=== PATIENT | female | born 1980 | race Caucasian/White ===

== ENCOUNTER 2017-05-15 22:35 | Emergency (ER) | payer OTHER ==
[~2017-05-15] VITALS: Ht 160 cm; Wt 51.3 kg
[~2017-05-15 22:35] MED LIST: ATIVAN1 M1 PO; DEMEROL HYDROCH50 MG PO; DIAZEPAM5 MG PO; VALIUM5 M2 PO; [UNRECOGNIZED DRUG - OTHER]
--- NOTE | 2017-05-15 23:33 | ED ANIMAL BITE/WOUND CHECK ---
History of Present Illness General Chief Complaint: Animal/Insect Bite Stated Complaint: PT WAS ATTTACK BY UNKNOWN CAT Source: patient Exam Limitations: no limitations Vital Signs & Intake/Output Vital Signs & Intake/Output Vital Signs Date Time Temp Pulse Resp B/P B/P Pulse O2 O2 Flow FiO2 Mean Ox Delivery Rate 05/15 2256 98.5 05/15 2252 98.5 69 16 99 Room Air ED Intake and Output 05/16 0000 05/15 1200 Intake Total 120 Output Total Balance 120 Intake, Oral 120 Patient 113 lb Weight Weight Reported by Patient Measurement Method Allergies Coded Allergies: Penicillins (Severe, RASH 03/04/16) ciprofloxacin (From Cipro) (Severe, RASH 03/04/16) erythromycin base (Severe, ANAPHYLAXIS 03/04/16) sulfamethoxazole (From Bactrim) (Severe, ANAPHYLAXIS 03/04/16) trimethoprim (From Bactrim) (Severe, ANAPHYLAXIS 03/04/16) acetaminophen (From VICODIN) (VOMITING 03/04/16) hydrocodone (From VICODIN) (VOMITING 03/04/16) oxycodone (From PERCOCET) (VOMITING 03/04/16) Reconcile Medications Clindamycin HCl 300 MG CAPSULE 1 CAP PO TID cat bite Diazepam 5 MG TAB 1 TAB PO TIDPRN PRN PAIN (Reported) Doxycycline Hyclate 100 MG TABLET 1 TAB PO BID cat bite Lorazepam (Ativan) 1 MG TABLET 1-2 TAB PO TIDPRN muscle strain/spasm Medroxyprogesterone Acetate (Depo-Provera 100MG Per Ml- 5 Ml Vial) 500 MG/5 ML CHELLE CONTROL (Reported) Meperidine Hydrochloride (Demerol Hydrochloride) 50 MG TAB 1-2 TAB PO Q6P PRN PAIN Triage Note: TRIAGE: PT WAS ATTACKED BY AN UNKNOWN OUTDOOR CAT TODAY AND WENT TO WALK IN WHO REFERRED HER TO ED FOR IV ANTIBIOTICS AND RABIES SERIES. BILATERAL FOREARMS NOTED WITH MANY PUNCTURE WOUNDS. PT CLEANED THEM WITH PEROXIDE CRAB FISHERMAN. REPORTS MULTIPLE ANTIBIOTIC ALLERGIES. UNSURE ON TETANUS Triage Nurses Notes Reviewed? yes Onset: Abrupt Duration: day(s): (1), constant, continues in ED, getting worse Timing: single episode today Injury Environment: home Is Injury an Animal Bite? Yes Animal Type: cat Context of Animal Attack: unprovoked attack Appearance of Animal: unknown Animal Immunization Status: unknown Observation/Capture: not captured Severity of Attack: bitten Severity: mild, moderate Severity Numbers: 7 No Modifying Factors: none LMP (ages 10-50): unknown : No Patient currently breastfeeds: No HPI: 36-year-old female witha past medical history presents for evaluation of cat bite to bilateral lower arms. Patient reports that last night she encountered a cat Near her house and the cat attacked her without any provocation. The cat is unknown to the patient and is likely a feral cat. She reports pain in both of her arms near the bite areas that is worse than any type of movement. She rates the pain as a 7 out of 10 that does not radiate. She denies any fevers, discharge, swelling, spreading redness, or any other injuries. Denies any previous rabies vaccination. Patient reports allergies to multiple antibiotics including penicillin. (BARAK JONES PA-C) Past History Travel History Traveled to [place] past 21 day No Medical History Any Pertinent Medical History? see below for history Neurological: NONE EENT: NONE Cardiovascular: HYPOTENSION Respiratory: NONE Gastrointestinal: NONE Hepatic: NONE Renal: NONE Musculoskeletal: NONE Psychiatric: NONE Endocrine: NONE Blood Disorders: NONE Cancer(s): NONE CONSULTING MANAGER/Reproductive: HORMONE ISSUES Surgical History Surgical History: non-contributory Psychosocial History Who do you live with Family Services at Home None What is your primary language Tajik Tobacco Use: Current Daily Use Daily Tobacco Use Amount/Type: => 5 Cigarettes daily ETOH Use: occasional use Illicit Drug Use: denies illicit drug use Family History Hx Contributory? No (BARAK JONES PA-C) Review of Systems Review of Systems Constitutional: Reports: no symptoms. EENTM: Reports: no symptoms. Respiratory: Reports: no symptoms. Cardiovascular: Reports: no symptoms. GI: Reports: no symptoms. Genitourinary: Reports: no symptoms. Musculoskeletal: Reports: no symptoms. Skin: Reports: see HPI. Neurological/Psychological: Reports: no symptoms. Hematologic/Endocrine: Reports: no symptoms. Immunologic/Allergic: Reports: no symptoms. All Other Systems: Reviewed and Negative (BARAK JONES PA-C) Physical Exam Physical Exam General Appearance: well developed/nourished, no apparent distress, alert, awake , anxious Head: atraumatic, normal appearance Eyes: Bilateral: normal appearance, PERRL, EOMI. Ears, Nose, Throat: normal pharynx, normal ENT inspection, hearing grossly normal Neck: normal inspection, supple, full range of motion Respiratory: normal breath sounds, chest non-tender, no respiratory distress, lungs clear Cardiovascular: regular rate/rhythm, normal peripheral pulses Peripheral Pulses: 2+ dorsalis pedis (R), 2+ dorsalis pedis (L) Gastrointestinal: normal bowel sounds, soft, non-tender, no organomegaly Back: normal inspection, normal range of motion, vertebral tenderness Extremities: normal range of motion, evidence of injury, there are multiple puncture wounds located on the distal bilateral forearms. There is no swelling, discharge or underlying erythema. Full range of motion of bilateral upper extremities. Norvasc supply intact. Neurologic/Psych: no motor/sensory deficits, awake, alert, oriented x 3, normal gait, normal mood/affect Reflexes: 2+: knee (R), knee (L). Skin: normal color, warm/dry Lymphatic: no anterior cervical nini (KAREN FALCON,BARAK) Progress Differential Diagnosis: abscess, cellulitis, joint infection, tenosysnovitis, cat scratch Plan of Care: Current Medications Sig/Rossana Start time Last Medication Dose Stop Time Status Admin Rabies Immune See Dose ONCE ONE 05/15 2345 UNVr Globulin Insts (1) 05/15 2346 (Rabies Immune Globlulin Inj) Rabies Vaccine See Dose ONCE ONE 05/15 2345 UNVr (Rabies (Vaccine) Insts (2) 05/15 2346 Inj (1ML)) Dose Instructions: (1)Rabies Immune Globulin (Rabies Immune Globlulin Inj): 20 units/kg (2)Rabies Vaccine (Rabies (Vaccine) Inj (1ML)): 1ml IM x 1 There are currently no signs of systemic or severe infection. Patient will be treated with clindamycin and doxycycline. She will also receive the rabies immunoglobulin and vaccine since the cat was unknown likely a stray. Discussed treatment plan with patient and she agrees with the plan. Patient is nontoxic at discharge (BARAK JONES PA-C) Departure Departure Disposition: HOME OR SELF CARE Condition: Stable Clinical Impression Primary Impression: Cat bite of forearm Qualifiers: Encounter type: initial encounter Laterality: right Qualified Codes : S51.851A - Open bite of right forearm, initial encounter; W55.01XA - Bitten by cat, initial encounter Referrals: TRENTON CRUZ MD (PCP/Family) Additional Instructions: Take doxycycline and clindamycin as directed for the full course. Take antibiotics with food and with Benadryl. Return to the emergency department in one week and again in 3 weeks for additional rabies vaccines. Monitor the area for worsening infection such as spreading redness, swelling, purulent discharge, or fever. Make a follow-up with her primary care doctor this week for a wound check. Tylenol as needed for pain. Please go over all results of today's visit with your primary care doctor. Contact your primary care doctor to let them know you were here in the emergency room. There may be nonspecific findings which may not be related to your visit today here in the emergency room but may require further evaluation and chronic monitoring by your primary care doctor. If you had a laceration today the chance of foreign body always remains. You should follow-up with your primary care doctor for recheck in 3-5 days for a wound check. If you had an x-ray done there is a chance that a fracture could have been missed on initial read and you should follow-up with your primary care doctor for repeat x-rays if symptoms persist. If your blood pressure was elevated here in the emergency room please have rechecked by her primary care doctor within the next 48 hours by your primary care doctor. If you were prescribed a narcotic here in the emergency room or any type of controlled substances you're not allowed to drive while taking this medication or operate any type of heavy machinery. Narcotics can make you feel lightheaded dizziness nausea and can cause constipation. You may need to lease picker a stool softener. Thank you for choosing [facility] emergency room. Please return to the emergency room immediately if you have any other concerns worsening of symptoms. Departure Forms: Customer Survey General Discharge Information Prescriptions: Current Visit Scripts Clindamycin HCl 1 CAP PO TID #30 CAP Doxycycline Hyclate 1 TAB PO BID #20 TAB (BARAK JONES PA-C) PA/GEOLOGIST Co-Sign Statement Statement: ED Attending supervision documentation- [] I saw and evaluated the patient. I have also reviewed all the pertinent lab results and diagnostic results. I agree with the findings and the plan of care as documented in the PA's/GEOLOGIST's documentation. [X] I have reviewed the ED Record and agree with the PA's/GEOLOGIST's documentation. [] Additions or exceptions (if any) to the PAs/GEOLOGIST's note and plan are summarized below: [] (MICHAEL SILVEIRA,MERRILL Momin)
[2017-05-15] MEDS ORDERED: CLINDAMYCIN HC300 M1 PO (23:55)
[2017-05-15] MEDS ORDERED: DOXYCYCLINE HY100 M4 PO (23:55)
== END 2017-05-16 01:36 ==
LOC: ERH 22:35
DX: S51.851A Open bite of right forearm, initial encounter (principal); S51.852A Open bite of left forearm, initial encounter; W55.01XA Bitten by cat, initial encounter; Y93.9 Activity, unspecified; Y92.9 Unspecified place or not applicable
CPT/HCPCS: 90376; 90471; 96372

== ENCOUNTER 2017-12-20 07:22 | Emergency (ER) | payer OTHER ==
[~2017-12-20] VITALS: Ht 160 cm; Wt 54.0 kg
[~2017-12-20 07:22] MED LIST changes: +CLINDAMYCIN HC300 M1 PO; +DOXYCYCLINE HY100 M4 PO
--- NOTE | 2017-12-20 08:11 | ED UPPER/LOWER EXTREMITY COMPL ---
History of Present Illness General Chief Complaint: Upper Extremity Injury Stated Complaint: LFT ARM PAIN AFTER MOVINGA COUCH Source: patient Exam Limitations: no limitations Vital Signs & Intake/Output Vital Signs & Intake/Output Vital Signs Date Time Temp Pulse Resp B/P B/P Pulse O2 O2 Flow FiO2 Mean Ox Delivery Rate 12/20 0945 97.0 59 20 121/82 100 Room Air 12/20 0817 Room Air 12/20 0726 99.8 90 15 135/89 98 Room Air Room Air Allergies Coded Allergies: Penicillins (Severe, RASH 12/20/17) ciprofloxacin (From Cipro) (Severe, RASH 12/20/17) erythromycin base (Severe, ANAPHYLAXIS 12/20/17) sulfamethoxazole (From Bactrim) (Severe, ANAPHYLAXIS 12/20/17) trimethoprim (From Bactrim) (Severe, ANAPHYLAXIS 12/20/17) acetaminophen (From VICODIN) (VOMITING 12/20/17) hydrocodone (From VICODIN) (VOMITING 12/20/17) oxycodone (From PERCOCET) (VOMITING 12/20/17) Reconcile Medications Clindamycin HCl 300 MG CAPSULE 1 CAP PO TID cat bite Diazepam 5 MG TAB 1 TAB PO TIDPRN PRN PAIN (Reported) Doxycycline Hyclate 100 MG TABLET 1 TAB PO BID cat bite LORazepam (Ativan) 1 MG TABLET 1-2 TAB PO TIDPRN muscle strain/spasm Medroxyprogesterone Acetate (Depo-Provera 100MG Per Ml- 5 Ml Vial) 500 MG/5 ML CHELLE CONTROL (Reported) Meperidine Hydrochloride (Demerol Hydrochloride) 50 MG TAB 1-2 TAB PO Q6P PRN PAIN Triage Note: PT TO ED FOR C/C OF MID UPPER BACK PAIN THAT RADIATES INTO LEFT ARM THAT STARTED SUNDAY AFTER MOVING A COUCH. +CMS TO EXTREMITY. TOOK MOTRIN AT HOME WITHOUT RELIEF. Triage Nurses Notes Reviewed? yes Onset: Gradual Duration: day(s): Timing: recent history Severity: moderate Pain/Injury Location: Left: Arm, Shoulder. LMP (ages 10-50): hysterectomy : No Patient currently breastfeeds: No HPI: 36yo female presents to ED complaining of mid back pain beginning after moving a heavy chair on 12/18/16. Patient reports radiation of pain down left arm associated with paresthesias of left hand. Patient also reports headache and mild URI symptoms over the past few days. Patient takes valium daily for anxiety however this med has not helped with her pain, she has also tried advil without relief. Pain is worse with movement. Patient denies fall or head trauma. (Chanelle Locke) Past History Travel History Traveled to [place] past 21 day No Medical History Any Pertinent Medical History? see below for history Neurological: NONE EENT: NONE Cardiovascular: HYPOTENSION Respiratory: NONE Gastrointestinal: NONE Hepatic: NONE Renal: NONE Musculoskeletal: NONE Psychiatric: NONE Endocrine: NONE Blood Disorders: NONE Cancer(s): NONE DRAMATIC READER/Reproductive: HORMONE ISSUES Surgical History Surgical History: non-contributory Psychosocial History Who do you live with Family Services at Home None What is your primary language Citizen Of [place] Tobacco Use: Current Daily Use Daily Tobacco Use Amount/Type: => 5 Cigarettes daily ETOH Use: denies use Illicit Drug Use: denies illicit drug use Family History Hx Contributory? No (Chanelle Locke) Review of Systems Review of Systems Constitutional: Reports: no symptoms. EENTM: Reports: no symptoms. Respiratory: Reports: no symptoms. Cardiovascular: Reports: no symptoms. Gastrointestinal/Abdominal: Reports: no symptoms. Genitourinary: Reports: no symptoms. Musculoskeletal: Reports: see HPI. Skin: Reports: no symptoms. Neurological/Psychological: Reports: see HPI. Hematologic/Endocrine: Reports: no symptoms. Immunological: Reports: no symptoms. All Other Systems: Reviewed and Negative (Chanelle Locke) Physical Exam Physical Exam General Appearance: well developed/nourished, no apparent distress, alert, awake Head: atraumatic, normal appearance Eyes: Bilateral: normal appearance. Ears, Nose, Throat: hearing grossly normal Neck: normal inspection, supple, full range of motion, tenderness to cerivcal spine and left upper trapezius muscle Cardiovascular/Respiratory: no respiratory distress Peripheral Pulses: 2+ radial (R), 2+ radial (L) Back: normal inspection, normal range of motion, left upper trapezius muscle tenderness Shoulder Left: normal range of motion, normal inspection, tenderness over superior and posterior shoulder Shoulder Right: normal range of motion, normal inspection Elbow Left: normal range of motion, normal inspection, tenderness to lateral epicondyle Elbow Right: normal range of motion, normal inspection Hand Left: normal inspection, normal range of motion Hand Right: normal inspection, normal range of motion Neurologic/Tendon: normal sensation, normal motor functions, normal tendon functions, strength 5/5 equal bilateral upper extremities Skin: intact, normal color, warm/dry (Shiloh EDWARDS,Chanelle Coello) Progress Differential Diagnosis: compartment syndrome, contusion, DVT, fracture, sprain, tendon injury, cervical radiculopathy, c-spine injury Plan of Care: Orders Procedure Date/time Status XRY-CERV SPINE 4 OR 5 VIEWS 12/20 835 Active X-ray without acute abnormality. Patient has intact distal pulses, no pallor or cold extremity, no significant trauma or injury prior to pain onset low suspicion for compartment syndrome at this time. Patient is sitting comfortably in stretcher, no acute distress. It was recommended she follow up with orthopedic physician for possible physical therapy and MRI if necessary. Patient given her home dose of Valium and Advil here in the emergency department. She has an allergy to Toradol and acetaminophen, based on these allergies patient was instructed to continue Valium and Advil regarding her symptoms. The patient agrees with the plan of care. Diagnostic Imaging: Viewed by Me: Radiology Read. Discussed w/RAD: Radiology Read. Radiology Impression: PATIENT: DANIELA FLORES PRESENT AGE: 36 PATIENT ACCOUNT NO: [id number] : 81 LOCATION: [facility] ORDERING PHYSICIAN: Chanelle EDWARDS SERVICE DATE: 12/20/17 EXAM TYPE: RAD - XRY-CERV SPINE 4 OR 5 VIEWS EXAMINATION: XR CERVICAL SPINE CLINICAL INFORMATION: Pain in the neck rating down left arm. COMPARISON: None TECHNIQUE: Cervical spine, 5 views FINDINGS: The cervical vertebra have normal density, height and alignment. No fracture, subluxation or prevertebral soft tissue swelling. The disc spaces are well-preserved. Facet joints are unremarkable. The neural foramina are widely patent. The visualized upper lobes are normal. IMPRESSION: - No evidence of degenerative disc disease, fracture or malalignment. - No evidence of neural foraminal stenosis. DICTATED BY: Karlos Delgado MD DATE/TIME DICTATED:12/20/17905 LEADLIGHTER:VIDAL DATE/TIME TRANSCRIBED:905 CONFIDENTIAL, DO NOT COPY WITHOUT APPROPRIATE AUTHORIZATION. < Electronically signed in Other Vendor System> SIGNED BY: Karlos Delgado MD 12/20/17 0911 (Chanelle Locke) Departure Departure Disposition: HOME OR SELF CARE Condition: Stable Clinical Impression Primary Impression: Muscle strain Secondary Impressions: Neck pain Referrals: Archie Delgado MD (PCP/Family) Additional Instructions: Continue Valium and Advil as prescribed. Follow-up with orthopedic physician for further evaluation, possible physical therapy, possible additional imaging. Return to the emergency Department with any worsening symptoms or concerns. Please note that there might be incidental findings in your evaluation that are unrelated to the current emergency department visit. Please notify your primary care doctor about this emergency department visit in order to obtain and review all of the testing performed so that these incidental findings can be monitored as needed. If you had an x-ray performed, please understand that some fractures may not be seen on the initial set of x-rays. If your symptoms persist you might need a repeat set of x-rays to check for such a fracture. If you had a laceration evaluated, please understand that foreign bodies such as glass or wood may not be visible to the naked eye or on plain x-rays. If the wound becomes red, swollen, increasingly more painful or if there is any drainage from the wound, please have it reevaluated by a physician for the possibility of a retained foreign body. If you're unable to follow up as outlined in the discharge instructions please return to the emergency department. Thank you for choosing the [facility] Emergency Department for your care. It was a pleasure to serve you today. Departure Forms: Customer Survey General Discharge Information (Chanelle Locke) PA/ASSISTANT PROSECUTING ATTORNEY Co-Sign Statement Statement: ED Attending supervision documentation- [] I saw and evaluated the patient. I have also reviewed all the pertinent lab results and diagnostic results. I agree with the findings and the plan of care as documented in the PA's/ASSISTANT PROSECUTING ATTORNEY's documentation. [X] I have reviewed the ED Record and agree with the PA's/ASSISTANT PROSECUTING ATTORNEY's documentation. [] Additions or exceptions (if any) to the PAs/ASSISTANT PROSECUTING ATTORNEY's note and plan are summarized below: [] (Ron Espinoza DO
--- NOTE | 2017-12-20 09:11 | RADIOLOGY REPORT ---
EXAMINATION: XR CERVICAL SPINE CLINICAL INFORMATION: Pain in the neck rating down left arm. COMPARISON: None TECHNIQUE: Cervical spine, 5 views FINDINGS: The cervical vertebra have normal density, height and alignment. No fracture, subluxation or prevertebral soft tissue swelling. The disc spaces are well-preserved. Facet joints are unremarkable. The neural foramina are widely patent. The visualized upper lobes are normal. IMPRESSION: - No evidence of degenerative disc disease, fracture or malalignment. - No evidence of neural foraminal stenosis.
[2017-12-20 09:45] VITALS: BP 121/82
== END 2017-12-20 09:54 ==
LOC: ERH 07:22
DX: S16.1XXA Strain of muscle, fascia and tendon at neck level, initial encounter (principal); M54.2 Cervicalgia; X50.0XXA Overexertion from strenuous movement or load, initial encounter; Y93.9 Activity, unspecified; Y92.9 Unspecified place or not applicable
CPT/HCPCS: 72050; J3360

== ENCOUNTER 2018-03-31 09:43 | Emergency (ER) | payer OTHER ==
[~2018-03-31] VITALS: Ht 160 cm; Wt 54.4 kg
--- NOTE | 2018-03-31 10:13 | ED HAND/WRIST INJURY COMPLAINT ---
History of Present Illness General Chief Complaint: Hand or Wrist Injury Stated Complaint: HAND PAIN Source: patient Exam Limitations: no limitations Vital Signs & Intake/Output Vital Signs & Intake/Output Vital Signs Date Time Temp Pulse Resp B/P B/P Pulse O2 O2 Flow FiO2 Mean Ox Delivery Rate 03/31 1216 98.4 84 18 120/74 99 Room Air 03/31 0950 98.6 69 18 112/66 98 Room Air Allergies Coded Allergies: Penicillins (Severe, RASH 12/20/17) ciprofloxacin (From Cipro) (Severe, RASH 12/20/17) erythromycin base (Severe, ANAPHYLAXIS 12/20/17) sulfamethoxazole (From Bactrim) (Severe, ANAPHYLAXIS 12/20/17) trimethoprim (From Bactrim) (Severe, ANAPHYLAXIS 12/20/17) acetaminophen (From VICODIN) (VOMITING 12/20/17) hydrocodone (From VICODIN) (VOMITING 12/20/17) oxycodone (From PERCOCET) (VOMITING 12/20/17) Reconcile Medications Clindamycin HCl 300 MG CAPSULE 1 CAP PO TID cat bite Diazepam 5 MG TAB 1 TAB PO TIDPRN PRN PAIN (Reported) Doxycycline Hyclate 100 MG TABLET 1 TAB PO BID cat bite LORazepam (Ativan) 1 MG TABLET 1-2 TAB PO TIDPRN muscle strain/spasm Medroxyprogesterone Acetate (Depo-Provera 100MG Per Ml- 5 Ml Vial) 500 MG/5 ML CHELLE CONTROL (Reported) Meperidine Hydrochloride (Demerol Hydrochloride) 50 MG TAB 1-2 TAB PO Q6P PRN PAIN Triage Note: 37 YO FEMALE TO TRIAGE C/O BILATERAL HAND PAIN X A MONTH. STATES HAS SEEN HER PCP AND IS SUOPPOSED TO SEE A HAND SPECIALIST BUT THE INSURANCE DIDNT GO THROUGH. Triage Nurses Notes Reviewed? yes : No Patient currently breastfeeds: No HPI: 37F no PMH with bilateral hand and wrist pain after lifting heavy things while moving a month ago. Has paresthesia and numbness of both hands diffusely. Her wrists and fingers hurt. She is able to close her hands but it is painful. She cannot recall any trauma. No systemic symptoms. Past History Travel History Traveled to [place] past 21 day No Medical History Any Pertinent Medical History? see below for history Neurological: NONE EENT: NONE Cardiovascular: HYPOTENSION Respiratory: NONE Gastrointestinal: NONE Hepatic: NONE Renal: NONE Musculoskeletal: NONE Psychiatric: NONE Endocrine: NONE Blood Disorders: NONE Cancer(s): NONE OCCUPATIONAL HEALTH NURSE/Reproductive: HORMONE ISSUES Surgical History Surgical History: non-contributory Psychosocial History Who do you live with Family Services at Home None What is your primary language [place] Tobacco Use: Never used Family History Hx Contributory? No Review of Systems Review of Systems Constitutional: Reports: no symptoms. EENTM: Reports: no symptoms. Respiratory: Reports: no symptoms. Cardiovascular: Reports: no symptoms. GI: Reports: no symptoms. Genitourinary: Reports: no symptoms. Musculoskeletal: Reports: no symptoms. Skin: Reports: no symptoms. Neurological/Psychological: Reports: no symptoms. Hematologic/Endocrine: Reports: no symptoms. Immunologic/Allergic: Reports: no symptoms. All Other Systems: Reviewed and Negative Physical Exam Physical Exam General Appearance: well developed/nourished, mild distress Head: atraumatic Eyes: Bilateral: normal appearance. Ears, Nose, Throat: normal ENT inspection, hearing grossly normal Neck: normal inspection, supple, full range of motion Cardiovascular/Respiratory: normal breath sounds, regular rate/rhythm Back: normal inspection, normal range of motion Wrist Left: lateral tenderness Wrist Right: lateral tenderness Hand Left: diffuse swelling and tenderness, sensation intact, full ROM Hand Right: diffuse swelling and tenderness, full ROM, sensation intact, nodule at palmar third MCP Skin: intact, normal color, warm/dry Lymphatic: no anterior cervical nini Progress Differential Diagnosis: abscess, cellulitis, contusion, compartment syndrome, dislocation, felon, fracture, gout, paronychia, septic arthritis, sprain, tenosynovitis Plan of Care: Orders Procedure Date/time Status Durable Medical Equipment 03/31 1136 Active Diagnostic Imaging: Viewed by Me: Radiology Read. Discussed w/RAD: Radiology Read. Radiology Impression: PATIENT: DANIELA FLORES PRESENT AGE: 37 PATIENT ACCOUNT NO: [id number] : 81 LOCATION: [facility] ORDERING PHYSICIAN: Shawn Charles MD SERVICE DATE: 03/31/18-1013 EXAM TYPE: RAD - XRY-HAND, LEFT; XRY-HAND, RIGHT; XRY-WRIST COMPLETE-LEFT; XRY-WRIST COMPLETE- RIGHT EXAMINATION: BILATERAL HANDS. BILATERAL WRISTS. CLINICAL INFORMATION: Bilateral hand and wrist pain with decreased sensation. Rule out fracture. Symptoms worst in the lateral aspects of both wrists as well as in the right third finger and the left thumb. COMPARISON: None TECHNIQUE: 5 views of the right wrist. 3 views of the right hand. 4 views of the left wrist. 3 views of the left hand. FINDINGS: Bilateral hands and wrists: No acute fracture or dislocation is seen in both hands and both wrists. No radiopaque foreign body is seen. No significant soft tissue swelling is noted. Bilaterally, small cystic changes are seen in the carpal bones. No significant joint space narrowing or spurring is seen. Bony structures are otherwise unremarkable. IMPRESSION: 1. No acute fracture involving the bilateral hands and bilateral wrists. 2. Mild degenerative changes in the carpus bilaterally. DICTATED BY: Alysa Gomez MD DATE/TIME DICTATED:03/31/181051 STEM ROLLER OR CRUSHER OPERATOR:VIDAL DATE/TIME TRANSCRIBED:03/31/181051 CONFIDENTIAL, DO NOT COPY WITHOUT APPROPRIATE AUTHORIZATION. <Electronically signed in Other Vendor System> SIGNED BY: Alysa Gomez MD 03/31/18 1121 Departure Departure Disposition: HOME OR SELF CARE Condition: Stable Clinical Impression Primary Impression: Carpal tunnel syndrome, bilateral Referrals: Sandy SILVEIRA,Archie (PCP/Family) Joseluis SILVEIRA,Barrera Momin Additional Instructions: Follow up with your map drafter. Return if any new or worsening symptoms. Departure Forms: Customer Survey General Discharge Information
--- NOTE | 2018-03-31 11:21 | RADIOLOGY REPORT ---
EXAMINATION: BILATERAL HANDS. BILATERAL WRISTS. CLINICAL INFORMATION: Bilateral hand and wrist pain with decreased sensation. Rule out fracture. Symptoms worst in the lateral aspects of both wrists as well as in the right third finger and the left thumb. COMPARISON: None TECHNIQUE: 5 views of the right wrist. 3 views of the right hand. 4 views of the left wrist. 3 views of the left hand. FINDINGS: Bilateral hands and wrists: No acute fracture or dislocation is seen in both hands and both wrists. No radiopaque foreign body is seen. No significant soft tissue swelling is noted. Bilaterally, small cystic changes are seen in the carpal bones. No significant joint space narrowing or spurring is seen. Bony structures are otherwise unremarkable. IMPRESSION: 1. No acute fracture involving the bilateral hands and bilateral wrists. 2. Mild degenerative changes in the carpus bilaterally.
[2018-03-31 12:16] VITALS: BP 120/74
== END 2018-03-31 12:17 ==
LOC: ERH 09:43
DX: G56.03 Carpal tunnel syndrome, bilateral upper limbs (principal)
CPT/HCPCS: 73110-LT; 73110-RT; 73130-LT; 73130-RT